=== PATIENT | male | born 1930 | race Caucasian/White ===

== ENCOUNTER 2018-08-05 05:32 | Day surgery (SDC) | payer OTHER ==
[~2018-08-05] VITALS: Ht 185.4 cm; Wt 99.8 kg
[~2018-08-05 05:32] MED LIST: ASPIR 8181 MG PO; BROVANA15 MCG/2 M INH; FLOMAX0.4 MG PO; HYDROCHLOROTHIA25 M2 PO; MAGNESIUM OXID250 MG PO; NAMENDA 10 MG T10 MG PO; PLAVIX 75 MG TA75 M1 PO; POTASSIUM20 PO; PROPRANOLOL 20M20 M1 PO; PROTONIX40 M1 PO; TRAZODONE HCL50 MG PO; ZOCOR20 MG PO; ZOLOFT100 MG PO
[2018-08-05 11:32] VITALS: BP 103/68
--- NOTE | 2018-08-09 06:17 | O ---
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 PROCEDURE: Excision of basal cell carcinoma of left lower lid, medial canthus and orbit with frozen sections, myocutaneous flap repair of defect with vascularized tarsoconjunctival flap from left upper lid to left lower lid and full thickness skin graft from right upper lid to left lower lid. SURGEON: Sim Langley M.D. SHIPPING TRACK SUPERVISOR: None. ANESTHESIA: General. COMPLICATIONS: None. INDICATIONS FOR SURGERY: This 87-year-old gentleman presents with a known large basal cell carcinoma in his central left lower lid. Removal of the tumor with frozen sections is planned including a staged reconstruction because of the extent of the disease. Informed consent was obtained to include but not limited to the potential risk for loss of vision, bleeding, infection, failure to improve the problem and the potential need for further surgery or treatment including a second stage reconstruction. DESCRIPTION OF PROCEDURE: The patient was taken to the operating room where general anesthesia was administered. The left lower lid, the left lateral canthus, the left cheek, the left medial canthus, the medial left upper lid were all anesthetized with Xylocaine with epinephrine mixed with Marcaine and Wydase. The incisions were then outlined with a fine tip skin marking can including what appeared to be 2 mm of normal appearing tissue around the entire lesion. The initial incision went through the lateral canthus, and the medial incision went through the medial commissure medial to the inferior punctum. The lateral incision was made first and then drawn across the premalar tissues in the cheek. When the incision was made medially, it was quite obvious that it still cut [address] [address] OPERATIVE REPORT Name: NILA,PHILLY Saige Room #: DEP [facility]..#: [id number] Admission: 08/05/18 ������������������ Attend Phys: Sim Langley MD Discharge: 08/05/18 ������������������ Date of : 32 Report #: [id number] through an extensive amount of tumor. This tissue was passed off the field for frozen section analysis. The medial base tumor that was still obviously left was dissected off the periosteum, which appeared to still be involved with tumor. The medial canthal piece of tissue was approximately 1 cm in diameter. It involved all of the anterior and posterior limbs of the medial canthal tendon that was submitted for permanent section analysis. The frozen section analysis returned that the lateral and inferior margins were clear. There was no medial margin, so I had asked for them to look at it under permanent sections. The left upper lid was then everted and anesthetic administered utilizing the same solution present at the beginning of the case. The lateral right upper lid was also anesthetized anticipating full-thickness skin graft. A myocutaneous flap was then developed laterally to reconstruct the lateral canthus and dry tissue adequate for the vascularized tarsoconjunctival flap from the left upper lid to be attached. There was no periosteum. Hemostasis was then re-achieved in the field. The flap was settled in this area with interrupted 5-0 Vicryl sutures drawing it to the periosteum laterally and rotating it medially so that there would be tissue for the vascularized tarsoconjunctival flap to be attached to. The left upper lid was then everted, and an incision made with a 15C blade 3.5 mm above the inferior border of the tarsal plate. The dissection was completed with a Antwan scissor mobilizing the entire left upper lid as a vascularized tarsoconjunctival flap utilizing a thin section technique. The conjunctiva was from the underlying Giron muscle and drawn down into the field. The tarsoconjunctival flap was secured with interrupted 6-0 Vicryl sutures to the flap laterally and then to a stump of periosteum deep in the medial commissure that was thought to most likely contain tumor, but there was nothing else to attach it to. The lower lid retractors were attached to the inferior border of the tarsal conjunctivae. The residual defect was then outlined in the right upper lid, utilizing an incision that was 10 mm above the eyelid margin and roughly paralleling the upper lid crease. The incisions were then made with a Antwan scissor and a high-temp cautery used to remove a full thickness skin graft utilizing thin section techniques. That field was then diligently dried with monopolar cautery. It was closed with interrupted 6-0 chromic sutures and then 6-0 plain gut sutures. Erythromycin was then placed on the right eye followed by moistened pad. The full thickness skin graft was then defatted and secured into the left lower lid bed with cardinal bites of 7-0 Vicryl suture. 6-0 [address]ures were [facility] [place] [facility] [address] [place] [address] OPERATIVE REPORT Name: PHILLY DOTSON Room #: [facility]#: [id number] Admission: 08/05/18 ������������������ Attend Phys: Sim Langley MD Discharge: 08/05/18 ������������������ Date of : 32 Report #: [id number] used upon the eyelid margin more superficially. The wound was then dressed with copious erythromycin ophthalmic ointment, followed by a Telfa pad that was held in place with eye pads, silk tape and Mastisol as a splint dressing. The right upper lid was dressed with erythromycin ointment, followed by a light Telfa pad. The patient was subsequently transported to the recovery area having tolerated the procedure well with no anesthetic or operative complications being noted. ��������������������������������������������� <ELECTRONICALLY SIGNED> ���������������������������������������� By: Sim Langley MD ��������������������������������������������� 08/09/18 0617 [id number] [id number] Sim Langley MD /nt
--- NOTE | 2018-08-09 11:06 | PATH ---
[facility] [place] [address] PATHOLOGY RPT PROCEDURE Name: LEO NEWELL Room #: DEP [facility]..#: [id number] ������������������ Admission: 08/05/18 ������������������ Date of : 32 Discharge: 08/05/18 Report #: [id number] Path Case #: [id number] [facility] Accession Number: [id number] . 01 Material submitted: . PART A: lid - LEFT LOWER LID BASAL CELL CARCINOMA. Modifiers: left, lower PART B: canthus - LEFT MEDIAL CANTHUS. Modifiers: left, medial . 01 Clinician provided ICD-10: C44.119 . 02 Frozen section diagnosis: . INTRAOPERATIVE CONSULTATION WITH FROZEN SECTION: (Dr. Rochelle Zuñiga) . FSA1, FSA2. Skin, left lower lid carcinoma, excision: - Lateral and inferior margins free of invasive carcinoma on FS slides. . These findings are discussed with Dr. Sim Langley in OR6 and a written report is placed in the patient's chart. (IUV:mml; 08/06/2018) . . . FROZEN SECTION GROSS DESCRIPTION: . A. Received fresh from the OR, labeled, "Leo Newell - Left lower lid basal cell carcinoma" is a rectangular excision of skin measuring 2.3 x 1.2 x 0.5 cm. The specimen is oriented as lateral, inferior, medial and superior. The lateral margin is designated 12:00, the inferior margin is designated 3:00, the medial margin is designated 6:00, and the superior is designated 9:00. At this point, the 12-3-6:00 is inked black, the 6-9:00 is inked blue, and 9-12:00 is inked green. The lateral margin (12:00) is additionally inked with orange ink. At this point, the specimen is serially sectioned and four pieces are submitted for frozen section as FSA1, the frozen section remnant is submitted for permanent section as A1. The additional remaining three sections of the specimen are submitted in FSA2, the frozen section remnant is submitted for permanent section in A2. (IUV:mml; 08/06/2018) . . Frozen section performed at [facility], [address], [place] [address]. IZV/QLM . 02 Diagnosis: A. Skin, left lower lid, excision: - INVASIVE WELL DIFFERENTIATED SQUAMOUS CELL CARCINOMA. [facility] [address] [place] [address] PATHOLOGY RPT PROCEDURE Name: LEO NEWELL Room #: DEP [facility] [place]odan.#: [id number] ������������������ Admission: 08/05/18 ������������������ Date of : 32 Discharge: 08/05/18 Report #: [id number] Path Case #: [id number] - EXTENSIVE PERINEURAL INVASION PRESENT. - Lateral and inferior margins as well as deep margins free of malignancy. . B. Skin, left medial canthus, excision: - INVASIVE WELL DIFFERENTIATED SQUAMOUS CELL CARCINOMA. - New medial margin is less than 1 mm away from invasive carcinoma. - FOCAL SKELETAL MUSCLE INVASION PRESENT. LB/08/09/2018 . 02 Comment: Dr. Madison Spain (board certified dermatopathologist) has seen junior sales representative slides of this case and concurs with my diagnosis. (IUV/db; 08/06/2018) . 02 Electronically signed: . Rochelle Zuñiga MD, Pathologist NPI- [id number] . 01 Gross description: . A. Please see frozen section gross description dictated by the pathologist located under the Frozen Section part of this report. . B. Received fresh from the OR, labeled, "Leo Newell - Left medial canthus" is a 1.4 x 1.0 x 1.0 cm excision with a tiny 0.3 cm strip of skin on the surface. The true margin is inked blue. At this point, the specimen is bisected (bivalved) and submitted in entirety for permanent sections only as B1. (IUV:mml; 08/06/2018) /TOB . 02 Pathologist provided ICD-10: C44.101 . 02 CPT . 827450, 582425, 325217, [id number] Specimen Comment: A courtesy copy of this report has been sent to Specimen Comment: [phone], . Specimen Comment: Report sent to / DR MASSEY Performed at: [address], [place], [place] [id number] MD Armond Sandoval MD Phone: [phone] Performed at: [address] [id number] MD Rochelle Zuñiga MD Phone: [phone]
== END 2018-08-05 16:50 | disposition home or self-care (01) ==
LOC: TBA 05:32 → OR 05:32 → TBA 05:33 → OR 06:12
DX: C44.1292 Squamous cell carcinoma of skin of left lower eyelid, including canthus (principal); J43.9 Emphysema, unspecified; F32.9 Major depressive disorder, single episode, unspecified; F41.9 Anxiety disorder, unspecified; F17.210 Nicotine dependence, cigarettes, uncomplicated; K21.9 Gastro-esophageal reflux disease without esophagitis; I48.91 Unspecified atrial fibrillation; F03.90 Unspecified dementia, unspecified severity, without behavioral disturbance, psychotic disturbance, mood disturbance, and anxiety; Z90.49 Acquired absence of other specified parts of digestive tract; Z98.0 Intestinal bypass and anastomosis status; Z98.49 Cataract extraction status, unspecified eye; Z85.828 Personal history of other malignant neoplasm of skin; Z85.038 Personal history of other malignant neoplasm of large intestine; Z88.2 Allergy status to sulfonamides; Z88.8 Allergy status to other drugs, medicaments and biological substances; Z79.82 Long term (current) use of aspirin; Z79.899 Other long term (current) drug therapy; Z98.890 Other specified postprocedural states
CPT/HCPCS: 50010; 50101; 50386; 50398; 51636; 56528; 56531; 62110; 62850; 64037; 70005